=== PATIENT | male | born 1970 | race Caucasian/White ===

== ENCOUNTER 2024-06-11 09:57 | Emergency (ER) | payer OTHER, SELFPAY ==
[2024-06-11 09:59] VITALS: BP 169/116
[2024-06-11 10:35] VITALS: BMI 25.5
--- NOTE | 2024-06-11 10:49 | ED.GENMED ---
History of Present Illness
General
Chief Complaint: Flank Pain
Time Seen by Provider: 06/11/24 10:30
History of Present Illness
History of Present Illness:
54-year-old male presents to the emergency department for evaluation of generalized abdominal discomfort occurring intermittently for the past 2 days associated with discomfort with urination and a sensation of incomplete voiding. Also noted
hematuria earlier in the month but this is since resolved.
Review of Systems
Review of Systems
Allergies reviewed?: Yes
All Other Systems: ROS reviewed and negative except as documented in HPI and ROS
Phy Exam
Physical Exam
Physical Exam:
GEN: Well appearing, NAD, WDWN
HEENT: Oral mucosa moist, no scleral icterus
Cardiac: Regular rate
Lung: No respiratory distress, no tachypnea
MSK: No gross deformity or injuries
Skin: Good color, no pallor or jaundice, no rashes
Neuro: AO x3, moves all extremities freely
Psych: Calm, cooperative
Course
Orders/Labs/Results
Orders:
Orders
06/11/24 10:54
Urinalysis Reflex To Culture Urgent
Date Specimen was Collected: 06/11/24
Time Specimen was Collected: 10:52
Urine Microscopic Reflex Cult Urgent
06/11/24 11:15
CT Abd/pel Without Iv Or Oral Urgent
Comment:
Reason For Exam: flank pain/hematuria
06/11/24 12:16
Ketorolac [Toradol] 30 mg IM NOW STA
Abnormal Lab Results
06/11/24
10:54
Ur Occult Blood Reflex 3+ A
(Negative)
Urine RBC 16-20 A /HPF
(0-2)
Vital Signs
Initial and Last Documented VS:
Initial Vital Signs
Temp Pulse Resp BP Pulse Ox
97.9 F 102 16 169/116 100
06/11/24 09:59 06/11/24 09:59 06/11/24 09:59 06/11/24 09:59 06/11/24 09:59
Last Documented Vital Signs
Temp Pulse Resp BP Pulse Ox
97.9 F 78 16 148/100 100
06/11/24 09:59 06/11/24 12:00 06/11/24 12:00 06/11/24 12:00 06/11/24 09:59
MDM/Problems Addressed
MDM/Problems Addressed:
Patient had negligible urine on postvoid residual bladder scan. Noted to have hematuria on UA thus was sent for CT which showed 2 left ureteral stones the largest of which was 9 x 4 x 4 mm at the left UVJ. He is quite comfortable and
well-appearing this is suitable for expectant management and supportive care at home. I did communicate with urology for close outpatient follow-up
*Critical Care Note
Total Time (30-74mins, 75-104mins- exclusive of procedures): Not Applicable
ED Attending Note
-
Portions of this chart may have been created with voice recognition software.� Occasional wrong word or��sound alike� substitutions may have occurred due to the inherent limitations of voice recognition software.
Discharge Plan
Departure
Patient Disposition: Home (Routine Discharge)
Date of Disposition: 06/11/24
Time of Disposition: 13:19
Patient with high blood pressure during this ER visit?: No
Discharge Problem:
Ureterolithiasis
Instructions: Kidney Stones (DC)
Prescriptions:
New
ketorolac 10 mg tablet
10 mg PO Q8H PRN (Reason: Pain) Qty: 15 0RF
Rx Instructions:
maximum total duration of 5 days from all oral, intranasal, or parenteral formulations
tamsulosin [Flomax] 0.4 mg capsule
0.4 mg PO DAILY Qty: 10 0RF
No Action
atorvastatin [Lipitor] 10 mg Tablet
10 mg PO HS
metoprolol succinate 100 mg Tablet Extended Release 24 Hr
100 mg PO DAILY
alprazolam [Xanax] 0.5 mg Tablet
0.5 mg PO DAILY
zolpidem 10 mg Tablet
10 mg PO HS PRN (Reason: sleep)
Referrals:
Kevin Hernández DO [Family Provider] -
Inder Tsang MD [Active] - Tomorrow
Interventions
Interventions:
*Risk Screen - Suicide Last Done: 06/11/24 10:02
*Neglect/Abuse Screening Last Done: 06/11/24 10:02
ED- Fall Risk Assessment Last Done: 06/11/24 10:59
*ED COVID-19 Vaccine History Last Done: 06/11/24 10:02
*Nursing Disposition Last Done: 06/11/24 13:29
SL-Ielept-Alixpdanpz Assessment Last Done: 06/11/24 10:58
ED-Male Genitourinary Assessment Last Done: 06/11/24 10:58
Discharge Date and Time
Discharge Date/Time: 06/11/24 13:30
Print Language: BARBADIAN
[2024-06-11 11:01] LABS: Urine Albumin Trace (Neg - Trace); Urine Bilirubin Negative (Negative); Urine Character Clear (Clear); Urine Color Yellow; Urine Glucose Negative (Negative); Urine Ketone Negative (Negative); Urine Leukocyte Negative (Negative); Urine Nitrite Negative (Negative); Urine Occult Blood 3+ (Negative); Urine Urobilinogen Negative (Neg - 1+)
[2024-06-11 11:18] LABS: Urine Mucus Few; Urine Squamous Cell 0-2 /LPF (Few)
[2024-06-11 11:19] LABS: Urine Red Blood Cell 16-20 /HPF (0-2); Urine Urothelial Cell 0-2 /LPF (FEW); Urine White Cell 0-2 /HPF (0-5)
[2024-06-11 11:39] VITALS: BP 140/100
[2024-06-11 12:00] VITALS: BP 148/100
[2024-06-11] MEDS: TORADOL 30 MG IM (12:27)
== END 2024-06-11 13:30 | disposition home or self-care (01) ==
LOC: EMR 09:57
PROVIDERS: Physician Assistant; EMERGENCY PHYSICIAN Emergency Medicine; FAMILY PHYSICIAN Family Medicine
DX: N20.1 Calculus of ureter (principal)
CPT/HCPCS: 99284; 96372; 74176; 81003; 81015

== ENCOUNTER → 2024-07-09 15:45 | Outpatient (REF) | payer OTHER, SELFPAY | LOC: RAD 15:45 | PROVIDERS: ATTENDING PHYSICIAN Urology; FAMILY PHYSICIAN Family Medicine | DX: N20.0 Calculus of kidney (principal) | CPT/HCPCS: 74018 ==

== ENCOUNTER 2024-07-13 06:23 | Day surgery (SDC) | payer OTHER, SELFPAY ==
[2024-07-13] VITALS (9 sets, daily range): BP systolic 117–162; BP diastolic 84–96; BMI 26.0
[2024-07-13] MEDS: Pyridium 200 MG PO (14:38)
[2024-07-17 23:18] LABS: Stone Analysis Mass 12 mg
== END 2024-07-13 16:15 | disposition home or self-care (01) ==
LOC: SDS 06:23
PROVIDERS: ATTENDING PHYSICIAN Urology
DX: N20.1 Calculus of ureter (principal); N40.1 Benign prostatic hyperplasia with lower urinary tract symptoms
CPT/HCPCS: 52356; 74420; 76000; 82365; 93005; A4300; C1758; C1769; C2617

== ENCOUNTER → 2025-03-14 15:03 | Outpatient (REF) | payer OTHER, SELFPAY | LOC: RAD 15:03 | PROVIDERS: ATTENDING PHYSICIAN Urology; FAMILY PHYSICIAN Family Medicine | DX: N20.0 Calculus of kidney (principal) | CPT/HCPCS: 76775 ==